=== PATIENT | female | born 1960 | race African-American/Black ===

== ENCOUNTER 2023-11-28 08:00 | Emergency (ER) | payer MEDICARE, OTHER ==
[~2023-11-28] VITALS: Ht 167.6 cm; Wt 95.0 kg
[2023-11-28 08:08] VITALS: O2SAT 99
[2023-11-28] MEDS: ACETAMINOPHEN 325MG TABLET PO ONE (08:34)
[2023-11-28 16:27] VITALS: BP 128/72; PULSE 72; RESP 18; TEMP 37.05852; O2SAT 98
== END 2023-11-28 16:29 | disposition home or self-care (01) ==
LOC: ER 08:39
DX: M25.561 Pain in right knee (principal); I10 Essential (primary) hypertension; E11.9 Type 2 diabetes mellitus without complications; Z88.8 Allergy status to other drugs, medicaments and biological substances; Z88.5 Allergy status to narcotic agent; W18.31XA Fall on same level due to stepping on an object, initial encounter; Y93.89 Activity, other specified; Y92.89 Other specified places as the place of occurrence of the external cause; Y99.8 Other external cause status
CPT/HCPCS: 99284; 73700; 72170; 73560; L1830